=== PATIENT | female | born 1975 ===

== ENCOUNTER 2018-01-10 17:07 | Emergency (ER) | payer MEDICAID ==
[2018-01-10 17:21] VITALS: TEMP 98
[2018-01-10] MEDS ORDERED: Sodium Chloride 0.9% 1,000 ML IV STA (17:41)
--- NOTE | 2018-01-10 17:43 | ED PDOC ---
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 PATIENT STATES SHE HAS BEEN FEELING DIZZY TODAY AND THEN FELT LIKE SHE WAS GOING TO PASS OUT SECONDARY TO LOWER ABDOMINAL PAIN SHE WAS EXPERIENCING TODAY. NOTES ONGOING VAGINAL BLEEDING.) <Benedicto Pantoja - Last Filed: 01/11/18 15:47> Time Seen by Provider: 01/10/18 17:42 Chief Complaint (Nursing): Dizziness/Lightheaded Past Medical History Vital Signs: Last Vital Signs Temp 98.0 F 01/10/18 17:19 Pulse 83 01/10/18 21:14 Resp 18 01/10/18 21:14 BP 130/74 01/10/18 21:14 Pulse Ox 100 01/10/18 21:14 <Jayda Galvan PA-C - Last Filed: 01/10/18 22:01> Reviewed: Historical Data, Nursing Documentation, Vital Signs Vital Signs: Last Vital Signs Temp 98.0 F 01/10/18 17:19 Pulse 90 01/10/18 17:19 Resp 16 01/10/18 17:19 BP 118/79 01/10/18 17:19 Pulse Ox 100 01/10/18 17:19 - Family History Family History: States: No Known Family Hx <Benedicto Pantoja - Last Filed: 01/11/18 15:47> - Home Medications Home Medications: Ambulatory Orders Medication Instructions Recorded Nitrofurantoin Macrocrystals 100 mg PO BID #10 cap 12/12/15 [Macrobid] - Allergies Allergies/Adverse Reactions: Allergies Allergy/AdvReac Type Severity Reaction Status Date / Time Penicillins Allergy RASH Verified 01/10/18 17:19 Review of Systems ROS Statement: Except As Marked, All Systems Reviewed And Found Negative <Benedicto Pantoja - Last Filed: 01/11/18 15:47> Physical Exam - Reviewed Nursing Documentation Reviewed: Yes Vital Signs Reviewed: Yes (BP/P LAYING 143/92 P92; BP/P SIT 142/98 P84; BP P STAND 137/87 P88) - Physical Exam Appears: Positive for: Well, Non-toxic, No Acute Distress Head Exam: Positive for: ATRAUMATIC, NORMAL INSPECTION, NORMOCEPHALIC Skin: Positive for: Normal Color, Warm, DRY Eye Exam: Positive for: EOMI, Normal appearance, PERRL ENT: Positive for: Normal ENT Inspection Neck: Positive for: Normal, Painless ROM Cardiovascular/Chest: Positive for: Regular Rate, Rhythm Respiratory: Positive for: CNT, Normal Breath Sounds Gastrointestinal/Abdominal: Positive for: Normal Exam, Soft Back: Positive for: Normal Inspection Extremity: Positive for: Normal ROM Neurologic/Psych: Positive for: Alert, Oriented <Benedicto Pantoja - Last Filed: 01/11/18 15:47> - Laboratory Results Result Diagrams: 01/10/18 17:50 01/10/18 17:50 <Jayda Galvan PA-C - Last Filed: 01/10/18 22:01> - Laboratory Results Result Diagrams: 01/10/18 17:50 01/10/18 17:50 Urine POC: Negative Urine dip results: Positive for: Blood. Negative for: Leukocyte Esterase, Nitrate, Ketones, Glucose, Bilirubin - ECG ECG Rhythm: Positive for: Sinus Rhythm (NSR 85BPM; NO ECTOPY NO ACUTE CHANGES) O2 Sat by Pulse Oximetry: 100 <PantojaBenedicto B - Last Filed: 01/11/18 15:47> Medical Decision Making Medical Decision Making: Case endorsed to me at 1930 pending chemistry and re-evaluation. CMP resulted and is wnl. On re-evaluation, patient reports improvement of symptoms, denies any headache, CP, SOB, palpitations, N/V, abdominal pain. On exam, patient remains AAOx3, in no acute distress. Lungs clear to auscultation, cardiac RRR, repeat neuro exam shows no focal findings, patient ambulating with a steady gait. Lab results reviewed and d/w the patient in great detail. Patient states that she has been having dizzy spells with associated symptoms of palpitations, chills and diaphoresis that come and go x 1.5 years, not related to exertion, mostly occurs at rest, at home. She states that she has been evaluated by her pmd regarding her symptoms and all yielded normal results. She reports no PMHx, no FH, is not a smoker. Patient advised to f/u w/ her pmd and advised that her symptoms could be related to panic attacks. Based on history, exam and diagnostic results, plan will be for outpatient follow up. Patient instructed to follow-up with pmd in 1-2 days without fail. Return to the emergency room at any time for any new or worsening symptoms. Patient states she fully agrees with and understands discharge instructions. States that she agrees with the plan and disposition. Verbalized and repeated discharge instructions and plan. I have given the patient opportunity to ask any additional questions. <Jayda Galvan PA-C - Last Filed: 01/10/18 22:01> Disposition - Patient ED Disposition Is Patient to be Admitted: No Counseled Patient/Family Regarding: Studies Performed, Diagnosis, Need For Followup - Disposition Disposition: Routine/Home Disposition Time: 22:00 <Jayda Galvan PA-C - Last Filed: 01/10/18 22:01> - Patient ED Disposition Is Patient to be Admitted: Transfer of Care - Disposition Disposition: Transfer of Care Disposition Time: 20:30 Patient Signed Over To: Jayda Galvan PA-C Handoff Comments: bloodwork/re-eval <Benedicto Pantoja - Last Filed: 01/11/18 15:47> - Clinical Impression Clinical Impression: Dizziness - Disposition Condition: STABLE Additional Instructions: Thank you for letting us take care of you today. You were treated for dizziness. The emergency medical care you received today was directed at your acute symptoms. Return to the Emergency Department if your symptoms worsen, do not improve, or if you have any other problems. Please contact your doctor in 2 days for re-evaluation and follow up. Bring any paperwork you were given at discharge with you along with any medications you are taking to your follow up visit. Our treatment cannot replace ongoing medical care by a primary care provider (PCP) outside of the emergency department. Thank you for allowing the [facility] team to be part of your care today. Instructions: Dizziness, Nonvertigo, (DC) Forms: [employer] SOFTWARE (Welsh) Print Language: VIET[place]ESE
[2018-01-10 17:59] LABS: BASO # 0.1 K/uL (0.0-0.2); BASO % 0.7 % (0.0-2.0); EOS % 0.4 % (0.0-4.0); HEMOGLOBIN 12.4 g/dL (12.0-16.0); LYMPH # 1.9 K/uL (1.0-4.3); LYMPH % 18.6 % (20.0-40.0); MEAN CELL VOLUME 87.8 fl (81.0-99.0); MEAN CORPUSCULAR HEMOGLOBIN 29.3 pg (27.0-31.0); MEAN CORPUSCULAR HGB CONC 33.4 g/dL (33.0-37.0); MEAN PLATELET VOLUME 6.1 fl (7.2-11.7); MONO % 9.6 % (0.0-10.0); NEUT # 7.2 K/uL (1.8-7.0); NEUT % 70.7 % (50.0-75.0); NRBC % 0.1 % (0.0-0.0); RBC 4.24 Mil/uL (3.80-5.20); RED CELL DISTRIBUTION WIDTH 14.3 % (11.5-14.5); WHITE BLOOD COUNT 10.2 K/uL (4.8-10.8)
[2018-01-10 18:50] LABS: ALB/GLOB RATIO 1.1 (1.0-2.1); ALBUMIN 4.4 g/dL (3.5-5.0); ALT/SGPT 33 U/L (9-52); AST/SGOT 31 U/L (14-36); BLOOD UREA NITROGEN 12 mg/dl (7-17); CALCIUM 9.2 mg/dL (8.4-10.2); GFR AFRICAN-AMERICAN > 60; GFR NON-AFRICAN AMERICAN > 60
[2018-01-10 19:32] VITALS: RESP 18
[2018-01-10 21:15] VITALS: BP 130/74; PULSE 83; O2SAT 100
--- NOTE | 2018-01-11 09:36 | CARD ---
APPROVED REPORT EKG Measurement Heart [id number] <Conclusion> Normal sinus rhythm Normal ECG
== END 2018-01-10 22:07 | disposition home or self-care (01) ==
LOC: H.ER 17:07
DX: R42 Dizziness and giddiness (principal); Z88.0 Allergy status to penicillin
CPT/HCPCS: 80053; 81025; 82948; 83735; 85025; 93005; 96361; 96374; 99285; J1885; J7040